=== PATIENT | male | born 1960 | race Two or more races ===

== ENCOUNTER 2020-08-20 22:18 | Inpatient (IN) | payer MEDICARE, MEDICAID ==
[~2020-08-20] VITALS: Ht 170.2 cm; Wt 68.0 kg
[2020-08-21 00:20] LABS: Basophils # (auto) 0.1 10 ^3/uL (0-0.2); Basophils % (auto) 0.8 % (0.0-2.0); Eosinophils # (auto) 0.2 10 ^3/uL (0-0.8); Eosinophils % (auto) 3.1 % (0.0-7.0); Hematocrit 32.2 % (41.0-53.0); Hemoglobin 11.1 g/dL (13.5-17.5); Lymphocytes # (auto) 0.7 10 ^3/uL (0.4-5.4); Lymphocytes % (auto) 9.8 % (10.0-50.0); Mean Corpuscular Hemoglobin 31.6 pg (28.0-32.0); Mean Corpuscular Hgb Conc. 34.5 g/dL (32.0-36.0); Mean Corpuscular Volume 91.6 fL (80.0-100.0); Monocytes # (auto) 0.4 10 ^3/uL (0-1.3); Monocytes % (auto) 5.7 % (0.0-12.0); Neutrophils # (auto) 5.5 10 ^3/uL (1.6-8.6); Neutrophils % (auto) 80.6 % (37.0-80.0); Platelet Count (auto) 184 10^3/uL (140-450); Red Blood Cells 3.52 10^6/uL (4.5-5.90); Red Cell Distribution Width 15.9 % (11.8-14.3); White Blood Cell 6.8 10^3/uL (4.4-10.8)
[2020-08-21 00:36] LABS: Albumin 4.2 g/dL (3.4-5.0); Anion Gap 11 (5-15); Calcium 7.3 mg/dL (8.5-10.1); Carbon Dioxide 24 mmol/L (21-32); Chloride 101 mmol/L (98-107); Glucose 155 mg/dL (74-106); Magnesium 2.3 mg/dL (1.6-2.6); Sodium 136 mmol/L (136-145)
[2020-08-21 00:38] LABS: Alanine Aminotransferase 35 U/L (16-61); Aspartate Aminotransferase 20 U/L (15-37); GFR African American 6 mL/min; GFR Non-African American 5 mL/min
[2020-08-21 00:40] LABS: Blood Urea Nitrogen 83 mg/dL (7-18); Potassium 7.8 mmol/L (3.5-5.1)
[2020-08-21 00:41] LABS: BUN/Creatinine Ratio 6.8
[2020-08-21 00:43] LABS: Alkaline Phosphatase 96 U/L (45-117); Bilirubin, Total 0.4 mg/dL (0.2-1.0); Partial Thromboplastin Time 27.3 sec (23.0-31.2); Total Protein 7.6 g/dL (6.4-8.2)
[2020-08-21] MEDS ORDERED: SODIUM ZIRCONIUM CYCL 10 GM PAK PO ONE (01:30)
[2020-08-21] MEDS ORDERED: CALCIUM GLUC 4.65meq/50ml D5AE 50 ML IV ONE (01:30)
[2020-08-21] MEDS ORDERED: InsuLIN REG 1unit/0.01ml Soln (100units/ml) IV ONE (01:30)
[2020-08-21] MEDS ORDERED: DEXTROSE (50%) 50ML SYRG IV ONE (01:30)
[2020-08-21] MEDS ORDERED: SODIUM BICARBONATE 8.4 % INJ 50ML VIAL IV ONE (01:30)
[2020-08-21] MEDS ORDERED: ALBUTEROL SULF 2.5 MG/0.5ML(0.5%) NEB SOLN NEB ONE (05:00)
[2020-08-21] MEDS ORDERED: TEMAZEPAM 15 MG CAP PO PRN (05:45)
[2020-08-21] MEDS ORDERED: NITROGLYCERIN 0.4 MG SL TAB SL PRN (05:45)
[2020-08-21] MEDS ORDERED: MORPHINE SULF INJ 2 MG/ML SYRINGE 1ML IV PRN (05:45)
[2020-08-21] MEDS ORDERED: ONDANSETRON HCL 4 MG/2 ML VIAL IV PRN (05:45)
[2020-08-21] MEDS ORDERED: ACETAMINOPHEN 325 MG TAB PO PRN (05:45)
[2020-08-21] MEDS ORDERED: DEXTROSE (50%) 50ML SYRG IV PRN (05:45)
[2020-08-21] MEDS: InsuLIN REG 1unit/0.01ml Soln (100units/ml) SC SCH ×4 (06:00→23:50)
[2020-08-21] MEDS: ACCU-CHEK COMFORT CURVE STRIP VI SCH ×4 (06:11→23:50)
[2020-08-21 08:29] LABS: Albumin 3.7 g/dL (3.4-5.0); Calcium 7.3 mg/dL (8.5-10.1)
[2020-08-21 08:30] LABS: Basophils # (auto) 0 10 ^3/uL (0-0.2); Basophils % (auto) 0.7 % (0.0-2.0); Eosinophils # (auto) 0.1 10 ^3/uL (0-0.8); Eosinophils % (auto) 2.7 % (0.0-7.0); Hematocrit 28.6 % (41.0-53.0); Hemoglobin 9.7 g/dL (13.5-17.5); Lymphocytes % (auto) 19.2 % (10.0-50.0); Mean Corpuscular Hemoglobin 31.5 pg (28.0-32.0); Mean Corpuscular Volume 92.6 fL (80.0-100.0); Monocytes # (auto) 0.4 10 ^3/uL (0-1.3); Monocytes % (auto) 7.9 % (0.0-12.0); Neutrophils # (auto) 3.5 10 ^3/uL (1.6-8.6); Neutrophils % (auto) 69.5 % (37.0-80.0); Platelet Count (auto) 158 10^3/uL (140-450); Red Blood Cells 3.09 10^6/uL (4.5-5.90); White Blood Cell 5.1 10^3/uL (4.4-10.8)
[2020-08-21 08:32] LABS: BUN/Creatinine Ratio 6.9; Bilirubin, Total 0.4 mg/dL (0.2-1.0); Total Protein 6.2 g/dL (6.4-8.2)
[2020-08-21] MEDS: SEVELAMER 800 MG TAB PO SCH ×3 (08:33→17:03)
[2020-08-21] MEDS: PANTOPRAZOLE 40 MG TAB PO SCH (08:33)
[2020-08-21] MEDS: ASPirin 81 mg TAB PO SCH (08:33)
[2020-08-21] MEDS: METOPROLOL TARTRATE 25 MG TAB PO SCH ×3 (08:33→23:25)
[2020-08-21 08:38] LABS: Potassium 5.9 mmol/L (3.5-5.1)
[2020-08-21] MEDS: cloNIDine HCL 0.1 MG TAB PO PRN (17:31)
[2020-08-21] MEDS ORDERED: ATORVASTATIN 20 MG TAB PO SCH (22:00)
[2020-08-22] MEDS: METOPROLOL TARTRATE 25 MG TAB PO SCH (01:19)
[2020-08-22] MEDS: InsuLIN REG 1unit/0.01ml Soln (100units/ml) SC SCH (06:00)
[2020-08-22] MEDS: ACCU-CHEK COMFORT CURVE STRIP VI SCH (06:15)
[2020-08-22 06:18] LABS: Basophils # (auto) 0.1 10 ^3/uL (0-0.2); Basophils % (auto) 1.4 % (0.0-2.0); Eosinophils # (auto) 0.2 10 ^3/uL (0-0.8); Eosinophils % (auto) 4.2 % (0.0-7.0); Hematocrit 28.1 % (41.0-53.0); Hemoglobin 9.4 g/dL (13.5-17.5); Lymphocytes # (auto) 0.8 10 ^3/uL (0.4-5.4); Lymphocytes % (auto) 18.3 % (10.0-50.0); Mean Corpuscular Hgb Conc. 33.5 g/dL (32.0-36.0); Mean Corpuscular Volume 92.4 fL (80.0-100.0); Monocytes # (auto) 0.5 10 ^3/uL (0-1.3); Monocytes % (auto) 11.7 % (0.0-12.0); Neutrophils # (auto) 2.8 10 ^3/uL (1.6-8.6); Neutrophils % (auto) 64.4 % (37.0-80.0); Nucleated Red Blood Cells % 0.1 %; Platelet Count (auto) 164 10^3/uL (140-450); Red Blood Cells 3.04 10^6/uL (4.5-5.90); Red Cell Distribution Width 15.8 % (11.8-14.3); White Blood Cell 4.4 10^3/uL (4.4-10.8)
[2020-08-22 06:42] LABS: BUN/Creatinine Ratio 6.2; Calcium 7.5 mg/dL (8.5-10.1); Potassium 5.5 mmol/L (3.5-5.1)
[2020-08-22 08:00] VITALS: BP 197/90
[2020-08-22] MEDS: SEVELAMER 800 MG TAB PO SCH (08:55)
[2020-08-22] MEDS: ASPirin 81 mg TAB PO SCH (08:56)
[2020-08-22] MEDS: PANTOPRAZOLE 40 MG TAB PO SCH (08:56)
[2020-08-22] MEDS: cloNIDine HCL 0.1 MG TAB PO PRN (09:34)
== END 2020-08-22 10:05 | disposition home or self-care (01) | DRG 640 ==
LOC: EDBD 22:18 → ER 22:26 → TELE 22:27
PROVIDERS: ADMIT Nurse Practitioner; ATTEND Family Medicine
PROC: 5A1D70Z Performance of Urinary Filtration, Intermittent, Less than 6 Hours Per Day (ICD-10-PCS; principal; 2020-08-21)
DX: E87.5 Hyperkalemia (principal); N18.6 End stage renal disease; I13.2 Hypertensive heart and chronic kidney disease with heart failure and with stage 5 chronic kidney disease, or end stage renal disease; N25.81 Secondary hyperparathyroidism of renal origin; E11.22 Type 2 diabetes mellitus with diabetic chronic kidney disease; E78.00 Pure hypercholesterolemia, unspecified; M89.9 Disorder of bone, unspecified; Z20.828 Contact with and (suspected) exposure to other viral communicable diseases; D63.1 Anemia in chronic kidney disease; I50.9 Heart failure, unspecified; Z86.73 Personal history of transient ischemic attack (TIA), and cerebral infarction without residual deficits; Z99.2 Dependence on renal dialysis
CPT/HCPCS: 36415; 71045; 80048; 80053; 82962; 83735; 83880; 84132; 84484; 85025; 85379; 85610; 85730; 87426; 90935; 93005; 94644; 96365; 96375; G0378; J0610; J1815